=== PATIENT | male | born 1955 | race Caucasian/White ===

== ENCOUNTER 2017-02-14 08:09 | Emergency (ER) | payer SELFPAY ==
[2017-02-14 08:20] VITALS: BP 133/92; PULSE 77; RESP 18; TEMP 98.6; O2SAT 98
[2017-02-14] MEDS ORDERED: PROPARACAINE 0.5% 15 ML OPHT DROP ONE (08:24)
[2017-02-14] MEDS ORDERED: PROPARACAINE 0.5% 15 ML OPHT DROP LEFTEYE ONE (08:25)
--- NOTE | 2017-02-14 08:35 | EDPHY ---
H & P Time Seen by Provider: 02/14/17 08:17 HPI/ROS: CHIEF COMPLAINT: Left eye irritation HISTORY OF PRESENT ILLNESS: The patient is a 61-year-old male who presents to the emergency department with left eye irritation. Patient does not wear contact lenses. He states that his symptoms have been present for approximately 1-2 months. 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 He thought it would resolve on its own. He has a dull sensation on the lateral aspect of his eye. There is no sharp pain. No visual change. No nausea or vomiting. No fevers or chills. REVIEW OF SYSTEMS: My complete review of systems is negative except as mentioned in the HPI. Past Medical/Surgical History: Denies Social history: The patient smokes. The patient works in construction Smoking Status: Current every day smoker Physical Exam: GENERAL: Well-appearing, in no acute distress, alert. Visual acuity: Noted. Eyelids: Normal inspection, everted for exam. Conjunctiva and sclera: No foreign material. No subconjunctival hemorrhage. No exudate. Not injected. Patient has mild raised conjunctiva the lateral/ inferior. No pterygium Corneas: Normal inspection. Examined with fluorescein dye: No uptake, abrasion, or ulcer. EOMs: Intact. Pupils: PERRL, normal accommodation. Anterior chambers: Normal inspection. No hyphema. No cells or flare. Posterior segments: Normal funduscopic exam Pressure 13 Constitutional: Initial Vital Signs Temperature (C) 37 C 02/14/17 08:16 Heart Rate 77 02/14/17 08:16 Respiratory Rate 18 02/14/17 08:16 Blood Pressure 133/92 H 02/14/17 08:16 O2 Sat (%) 98 02/14/17 08:16 Allergies/Adverse Reactions: Sulfa (Sulfonamide Antibiotics) Allergy (Verified 02/14/17 08:20) Home Medications: Medication Instructions Recorded Vitamin D3 02/14/17 Medical Decision Making Procedures: Procedure: eye pressure The patient consented to the procedure. I used a Stanton-Pen to obtain measurement. 13 Differential Diagnosis: My differential includes but is not limited to foreign body, abrasion, ulceration, pterygium, glaucoma - Data Points Medications Given: Discontinued Medications Proparacaine HCl (Alcaine 0.5%) 1 drops JOHN SAMANIE[place] ONE Stop: 02/14/17 08:26 Last Admin: 02/14/17 08:26 Dose: 1 drops Departure - Departure Disposition: Home, Routine, Self-Care Clinical Impression: Eye pain Qualifiers: Laterality: left Qualified Code(s): H57.12 - Ocular pain, left eye Condition: Good Instructions: Eye Pain (ED) Additional Instructions: Use eye protection at work. You should use UV and bipolar eyes glasses in the sun. You need close follow-up with the automotive collision estimator. You have been given contact information. Referrals: Yarelis Tafoya MD [Medical Doctor] - 5-7 days, call for appt.
== END 2017-02-14 08:37 | disposition home or self-care (01) ==
LOC: CED 08:09
DX: H57.12 Ocular pain, left eye (principal); F17.200 Nicotine dependence, unspecified, uncomplicated